=== PATIENT | female | born 1990 | race Caucasian/White ===

== ENCOUNTER 2017-02-05 11:00 | Day surgery (SDC) | payer BC ==
--- NOTE | 2017-02-05 11:30 | OR ---
Anesthesia Pre Procedure Eval Date of Service: 02/05/17 Pre Procedure Evaluation: Last Vital Signs Temp 36.7 C 04/03/14 17:01 Pulse Resp BP 143/84 04/03/14 17:01 Pulse Ox Anesthesia Pre Procedure Evaluation DATE: 02/05/2017 TIME: 11:25 AM INDICATIONS: Headaches, abnormal CT PAST MEDICAL HISTORY: Ms. Jacobson has had a long history of headaches, most recently more frequent and intense. She was seen in the emergency department as recent as Sunday and then again at [place] emergency department on Sunday of last week. Her most recent episode at the beginning of last week was particularly intense. The procedure and risks were explained Based on Her Habitus the Use of Fluoroscopy Is Anticipated with This Procedure. History of GERD: No History of smoking: No History of sleep apnea: No EXAM: Heart S1-S2 regular; lungs clear bilaterally ASSESSMENT OF MEDICAL STATUS: Appropriate candidate for lumbar puncture PLANNED PROCEDURE: Lumbar puncture under fluoroscopy Home Medications: HOME MEDICATIONS NK [No Home Medication] 02/02/17 [Last Taken Unknown]
--- NOTE | 2017-02-05 12:17 | OR ---
Anesthesia Procedure Note - Anesthesia Procedure Note Date of Service: 02/05/17 Narrative: Vital Signs - Last Taken Temp 37.1 C 02/05/17 11:29 Pulse 65 02/05/17 11:29 Resp 16 02/05/17 11:29 BP 109/73 02/05/17 11:29 Pulse Ox 97 02/05/17 11:29 O2 Oxygen Delivery Method Room Air 02/05/17 12:11 ANESTHESIA PROCEDURE NOTE Date of Procedure: 02/05/2017 Time of procedure: 1143. Performed by: JONE Fuentes CRNA, MSN Opera Singer: Jumana Carrasquillo RN. Preprocedure diagnosis: Headaches, abnormal CT. Post procedure diagnosis: Same. Procedure: Lumbar Puncture L4 5. Indications: Headaches, abnormal CT. Findings: See below. Details of the procedure: The patient was placed in prone position the back was prepped with Duraprep and draped in a sterile fashion. The L 4, 5 left interspace identified under fluoroscopy and was localized with 1% lidocaine solution. Using a #22-gauge Dodson needle the CSF was contacted and a lateral view was obtained showing the tip of the needle in the subarachnoid space. She then turned right lateral straddling the OR table and the stretcher that she was flush with the table. Clear CSF returned and the opening pressure measured 36 centimeters water pressure. 4 vials of CSF were harvested and the closing pressure was measured at 17 cm of water pressure, the results of which were called to Dr. Casey. The spinal needle was then removed and a Band- Aid was applied. EBL: Minimal. Fluids: N/A. Specimen:3vials of clear CSF 3 milliliters each, 1 vial of CSF with 7 mL. Post procedure condition: The patient tolerated the procedure well. No complications were noted. Fluoroscopy time: 7.9 seconds, fluoroscopy dosage: 5.5mGy Thank you for this consultation. Marcial Perez CRNA, FRUIT SPRAYER, MSN
[2017-02-05 12:53] LABS: CSF Appearance Clear (CLEAR); CSF Color Colorless (COLORLESS); CSF RBC 0 /uL (0-10)
[2017-02-05 12:54] LABS: CSF WBC 48 /uL (0-10)
[2017-02-05 13:08] LABS: CSF Lymphocytes 100 % (0-100)
[2017-02-05 18:26] VITALS: BP 125/74
== END 2017-02-05 11:01 | disposition home or self-care (01) ==
LOC: AMB 11:00
PROVIDERS: ATTEND Nurse Practitioner
PROC: 009U3ZX Drainage of Spinal Canal, Percutaneous Approach, Diagnostic (ICD-10-PCS; principal; 2017-02-05 12:15)
DX: R51 Headache (principal); R93.0 Abnormal findings on diagnostic imaging of skull and head, not elsewhere classified; Z68.43 Body mass index [BMI] 50.0-59.9, adult